=== PATIENT | male | born 1955 | race Caucasian/White ===

== ENCOUNTER 2017-03-02 12:50 | Day surgery (SDC) | payer BC, OTHER ==
[2017-03-02 13:20] VITALS: BMI 35.4
[2017-03-02 14:02] VITALS: TEMP 97.5
[2017-03-02 14:58] VITALS: BP 130/78; PULSE 58
--- NOTE | 2017-03-04 11:36 | PATH ---
Surgical Pathology Report Patient Name: SAVANAH ANDERSON [facility]. Rec. #: [id number] /Age/Gender: 1955 (Age: 61) / M Account: [id number] Location: U-ENDOSCOPY Taken: 03/02/2017 Received: 03/03/2017 Reported: 03/04/2017 Physicians: Tra Persaud M.D. Specimen(s) Received BX STOMACH Clinical History Iron deficiency anemia, history of GI bleed Erosive gastritis, hemorrhoids, chronic constipation Final Diagnosis STOMACH, BIOPSY: MILD CHRONIC GASTRITIS WITH FOCAL INTESTINAL METAPLASIA. NO DYSPLASIA IDENTIFIED. IMMUNOSTAIN FOR H. PYLORI IS NEGATIVE. Electronically Signed Harish Smith M.D. Gross Description Received in formalin, labeled "biopsy stomach" are 2 muse, irregular portions of soft tissue measuring 0.3 and 0.4 cm. in greatest dimension. The specimens are submitted in toto in one cassette. 03/03/201703/03/2017
== END 2017-03-02 15:00 | disposition home or self-care (01) ==
LOC: JASU-ENDO 12:50
PROVIDERS: ATTEND Internal Medicine Gastroenterology
PROC: 0DB68ZX Excision of Stomach, Via Natural or Artificial Opening Endoscopic, Diagnostic (ICD-10-PCS; 2017-03-02)
PROC: 0DJD8ZZ Inspection of Lower Intestinal Tract, Via Natural or Artificial Opening Endoscopic (ICD-10-PCS; principal; 2017-03-02 13:00)
DX: D50.9 Iron deficiency anemia, unspecified (principal); K64.8 Other hemorrhoids; K29.70 Gastritis, unspecified, without bleeding
CPT/HCPCS: 88305-TC; 88342-TC

== ENCOUNTER 2017-09-17 07:39 | Day surgery (SDC) | payer BC, OTHER ==
[2017-09-16 13:41] VITALS: BMI 34.0
[2017-09-17] MEDS ORDERED: LIDOCAINE HCL/PF 2% SDV 5ML VIAL ONE (07:49)
[2017-09-17 09:14] VITALS: TEMP 98.2
[2017-09-17 09:20] VITALS: PULSE 53
[2017-09-17 13:45] VITALS: BP 134/58
--- NOTE | 2017-09-18 19:05 | PATH ---
Surgical Pathology Report Patient Name: SAVANAH ANDERSON [facility]. Rec. #: [id number] /Age/Gender: 1955 (Age: 62) / M Account: [id number] Location: U-ENDOSCOPY Taken: 09/17/2017 Received: 09/17/2017 Reported: 09/18/2017 Physicians: Tra Persaud M.D. Copy To: [id number] Specimen(s) Received A: SPLENIC FLEXURE BIOPSY B: BX CECUM ABNORMAL MUCOSA Clinical History Anemia Colon polyp, redundant colon, cecum, abnormal mucosa, melanosis Final Diagnosis A. SPLENIC FLEXURE, POLYP, BIOPSY: TUBULAR ADENOMA. B. CECUM, BIOPSY: TUBULAR ADENOMA. Electronically Signed Shalini Spivey M.D. Gross Description A. Received in formalin, labeled "splenic flexure polyp" is a muse, irregular portion of soft tissue measuring 0.3 cm. in greatest dimension. The specimen is submitted in toto in one cassette. B. Received in formalin, labeled "biopsy cecum" are 4 muse, irregular portions of soft tissue ranging from 0.2-0.9 cm. in greatest dimension. The specimens are submitted in toto in one cassette. 09/17/2017 saudi09/17/2017
== END 2017-09-17 10:08 | disposition home or self-care (01) ==
LOC: JASU-ENDO 07:39
PROVIDERS: ATTEND Internal Medicine Gastroenterology
PROC: 0DBL8ZX Excision of Transverse Colon, Via Natural or Artificial Opening Endoscopic, Diagnostic (ICD-10-PCS; 2017-09-17)
PROC: 0DBH8ZX Excision of Cecum, Via Natural or Artificial Opening Endoscopic, Diagnostic (ICD-10-PCS; principal; 2017-09-17 08:00)
DX: D50.9 Iron deficiency anemia, unspecified (principal); K64.8 Other hemorrhoids; K63.89 Other specified diseases of intestine; K92.1 Melena; D12.6 Benign neoplasm of colon, unspecified
CPT/HCPCS: 88305-TC